=== PATIENT | female | born 1985 | race Caucasian/White ===

== ENCOUNTER 2016-05-13 16:31 | Emergency (ER) | payer MEDICAID, SELFPAY ==
[2016-05-13 19:49] VITALS: BP 135/109
--- NOTE | 2016-05-14 11:15 | CR ---
INDICATION: Slammed hand in car door. RIGHT HAND: Three views of the right hand revealed no evidence of an acute fracture, dislocation, or other significant bone or joint abnormality. A small sclerotic density in the proximal metaphysis of the middle phalanx of the third digit is noted, compatible with a benign bone island. IMPRESSION: Normal right hand. MTDD
--- NOTE | 2016-05-18 03:47 | ER ---
DATE SEEN: 05/13/2016 CHIEF COMPLAINT: The patient got her hand caught in car door at 0030 hours. HISTORY OF PRESENT ILLNESS: At 1500 hours, she struck the back of her hand and bruised the dorsum which increased the pain. She has moderate pain and discomfort, presents to the ED for further evaluation at 1700 hours. ALLERGIES: Metronidazole, Latex, polymyxin, natural rubber. CURRENT MEDICATIONS: 1. Vistaril. 2. Venlafaxine 150 mg daily. PHYSICAL EXAMINATION: GENERAL: The patient is in mild distress. HEENT: PERRLA intact. Pharynx without abnormality. NECK: Supple. LUNGS: Clear to auscultation. HEART: S1, S2. No murmur. EXTREMITIES: The patient on examination has mild swelling of MP joints 2, 3, 4, and dorsum of the hand. Sensation intact. Capillary refill intact. Range of motion of fingers intact, but she moves the fingers gingerly. IMAGING: X-rays without abnormality. ASSESSMENT: Contusion without fracture. Soft tissue injury dorsum right hand, MCP joints 2, 3, 4. PLAN: Follow up with doctor in a week. Use Tylenol or ibuprofen. /[id number] DAPHNIE/TREY FERRARI
== END 2016-05-13 18:45 | disposition home or self-care (01) ==
LOC: FB.ED 16:31
DX: S60.221A Contusion of right hand, initial encounter (principal); Z91.040 Latex allergy status; Z88.8 Allergy status to other drugs, medicaments and biological substances; W23.0XXA Caught, crushed, jammed, or pinched between moving objects, initial encounter
CPT/HCPCS: 73130-RT; 99283

== ENCOUNTER 2017-03-07 07:03 | Inpatient (IN) | payer MEDICAID ==
[2017-03-07] MEDS ORDERED: Oxytocin/Normal Saline 10 UNIT/1,000 ML BAG IV SCH (08:30)
--- NOTE | 2017-03-07 08:34 | PCM.LDHP ---
L&D History of Present Illness - General Date of Service: 03/07/17 Admit Problem/Dx: Patient Status Order with Admit Dx/Problem 03/07/17 07:00 Admission Status [Patient Status] [ADT] Routine 03/07/17 07:05 Admission Status [Patient Status] [ADT] Routine Admission Diagnosis/Problem Admission Diagnosis/Problem Source of Information: Patient History Limitations: Reports: No Limitations - History of Present Illness Introduction:: 31-year-old at 39 weeks and 2 days here for elective induction.she's had unremarkable so far. Dates have been confirmed by an early trimester ultrasound . She routinely. Barron but he is unwell today,and for the next 2 weeks, she is being induced electively to prevent precipitous delivery. Improves with: Reports: None Worsens with: Reports: None Associated Symptoms: Reports: N - Related Data Allergies/Adverse Reactions: Allergies Allergy/AdvReac Type Severity Reaction Status Date / Time metronidazole [From Flagyl] Allergy Unknown Other Verified 03/07/17 08:06 Latex, Natural Rubber Allergy Rash Verified 03/07/17 08:06 polymyxin B Allergy Other Verified 03/07/17 08:06 Home Medications: Home Meds Vits #93/Iron Fum/FA [ Formula Tablet] 1 cap PO DAILY 11/01/16 [History] Penicillin V Potassium 500 mg PO Q6HR 03/07/17 [History] Past Medical History Genitourinary History: Reports: UTI, Recurrent HELIOTHERAPIST History: Reports: Endometrial Ablation, Endometriosis, , Spontaneous Musculoskeletal History: Reports: Other (See Below) Other Musculoskeletal History: hand slammed in car door Neurological History: Reports: Migraines Psychiatric History: Reports: Depression Endocrine/Metabolic History: Reports: Obesity/BMI 30+, Vitamin D Deficiency - Infectious Disease History Infectious Disease History: Reports: Chicken Pox - Past Surgical History HEENT Surgical History: Reports: Oral Surgery Female Surgical History: Reports: D&C, Endometrial Ablation Social & Family History - Family History Family Medical History: Noncontributory Respiratory: Reports: Asthma OBGYN: Reports: Neurological: Reports: Seizure Oncologic: Reports: Breast - Tobacco Use Smoking Status *Q: Current Every Day Smoker Years of Tobacco use: 20 Packs/Tins Daily: 1 Used Tobacco, but Quit: No Second Hand Smoke Exposure: Yes - Caffeine Use Caffeine Use: Reports: Soda - Alcohol Use Days Per Week of Alcohol Use: 1 Number of Drinks Per Day: 2 Total Drinks Per Week: 2 - Recreational Drug Use Recreational Drug Use: No H&P Review of Systems - Review of Systems: Review Of Systems: ROS reveals no pertinent complaints other than HPI. General: Reports: No Symptoms HEENT: Reports: No Symptoms Pulmonary: Reports: No Symptoms Cardiovascular: Reports: No Symptoms Gastrointestinal: Reports: No Symptoms Genitourinary: Reports: No Symptoms Musculoskeletal: Reports: No Symptoms Skin: Reports: No Symptoms Psychiatric: Reports: No Symptoms Neurological: Reports: No Symptoms Hematologic/Lymphatic: Reports: No Symptoms Immunologic: Reports: No Symptoms L&D Exam - Exam Exam: See Below - Vital Signs Vital Signs: Last Vital Signs Temp 97.7 F 03/07/17 07:29 Pulse 110 H 03/07/17 07:29 Resp 20 03/07/17 07:29 BP 129/84 03/07/17 07:29 Pulse Ox 97 03/07/17 07:29 Weight: 87.09 kg - Nesbitt Score Nesbitt Score Cervix Position: Midposition Nesbitt Score Consistency: Soft Nesbitt Score Effacement: >80% Nesbitt Score Dilation: 3-4 cm Nesbitt Score Infant's Station: -1 ,0 Nesbitt Score Total: 10 - Exam General: Alert, Oriented HEENT: PERRLA, Conjunctiva Clear, EACs Clear, EOMI, Hearing Intact, Mucosa Moist & [place], Nares Patent, Normal Nasal Septum, Posterior Pharynx Clear, TMs Clear Neck: Supple, Trachea Midline Lungs: Clear to Auscultation, Normal Respiratory Effort Cardiovascular: Regular Rate, Regular Rhythm GI/Abdominal Exam: Normal Bowel Sounds, Soft, Non-Tender, No Organomegaly, No Distention, No Abnormal Bruit, No Mass, Pelvis Stable Rectal Exam: Normal Exam, Normal Rectal Tone Genitourinary: Normal external exam, Normal bimanual exam, Normal speculum exam Back Exam: Normal Inspection, Full Range of Motion Extremities: Normal Inspection, Normal Range of Motion, Non-Tender, No Pedal Edema, Normal Capillary Refill Skin: Warm, Dry, Intact Neurological: Cranial Nerves Intact, Reflexes Equal Bilateral Psychiatric: Alert, Normal Affect, Normal Mood - Problem List (1) Term SNOMED Code(s): 96292761 ICD Code: Z34.80 - ENCOUNTER FOR SUPRVSN OF NORMAL , UNSP TRIMESTER Status: Acute Current Visit: Yes (2) Elective induction of labor planned SNOMED Code(s): 736611762 ICD Code: [id number] - Status: Acute Current Visit: Yes Problem List Initiated/Reviewed/Updated: Yes Orders Last 24hrs: Active Orders 24 hr Category Date Time Status Admission Status [Patient Status] [ADT] Routine ADT 03/07/17 07:00 Active Admission Status [Patient Status] [ADT] Routine ADT 03/07/17 07:05 Active Communication Order [RC] ASDIRECTED Care 03/07/17 08:20 Active Communication Order [RC] ASDIRECTED Care 03/07/17 08:20 Active Communication Order [RC] ASDIRECTED Care 03/07/17 08:20 Active Communication Order [RC] ASDIRECTED Care 03/07/17 08:20 Active Notify Provider [RC] PRN Care 03/07/17 08:20 Active Notify Provider [RC] STAT Care 03/07/17 08:20 Active Vital Signs [RC] PER UNIT ROUTINE Care 03/07/17 08:20 Active Oxytocin/Normal Saline [Pitocin in NS 10 UNITS/1,000 ML Med 03/07/17 08:30 Active ] 10 unit in 1,000 ml IV TITRATE Medication Orders Oxytocin/Sodium Chloride (Pitocin In Ns 10 Units/1,000 Ml) 10 unit in 1,000 mls @ 12 mls/hr IV TITRATE ALFRED; 2 MUNITS/MIN PRN Reason: Protocol Assessment/Plan Comment:: I attempted AROM, probable sure very minimal clear fluid was felt the low back. We will start Pitocin obtain Axial analgesia and manage accordingly. She is GBS negative
[2017-03-07] MEDS ORDERED: Sodium Chloride 0.9% 10 ML Syringe FLUSH ONE (08:48)
[2017-03-07] MEDS: Lactated Ringers 1,000 ML IV SCH ×2 (08:52→10:49)
[2017-03-07] MEDS ORDERED: fentaNYL 100 MCG/2 ML SDV ITHECAL ONE (10:00)
[2017-03-07] MEDS ORDERED: Morphine PF 10 MG/10 ML SDV ONE (10:00)
[2017-03-07] MEDS ORDERED: Scopolamine 1.5 MG Transdermal Patch ONE (10:08)
[2017-03-07] MEDS ORDERED: ePHEDrine 50 MG/ML SDV ONE (10:08)
[2017-03-07] MEDS ORDERED: Naloxone 0.4 MG/ML SDV ONE (10:08)
[2017-03-07] MEDS ORDERED: Nalbuphine 10 MG/1 ML Vial IVPUSH PRN (10:41)
[2017-03-07] MEDS ORDERED: Scopolamine 1.5 MG Transdermal Patch TOP ONE (10:41)
[2017-03-07] MEDS ORDERED: Ondansetron 4 MG/2 ML SDV IVPUSH PRN (10:41)
[2017-03-07] MEDS ORDERED: Naloxone 0.4 MG/ML SDV IVPUSH PRN (10:41)
[2017-03-07] MEDS ORDERED: Promethazine 6.25 MG in Sodium Chloride 0.9% 50 ML IV PRN (10:41)
[2017-03-07] MEDS ORDERED: diphenhydrAMINE 50 MG/ML SDV IVPUSH PRN (10:41)
[2017-03-07] MEDS ORDERED: Promethazine 12.5 MG in Sodium Chloride 0.9% 50 ML IV PRN (10:41)
[2017-03-07] MEDS ORDERED: Naltrexone 50 MG Tab PO PRN ×2 (10:41→11:49)
[2017-03-07] MEDS ORDERED: diphenhydrAMINE 50 MG/ML SDV IV PRN (10:41)
[2017-03-07] MEDS ORDERED: ePHEDrine 50 MG/ML SDV IVPUSH PRN (10:41)
[2017-03-07] MEDS ORDERED: Famotidine/Normal Saline 20 MG in Premix Bag 1 BAG IV PRN (10:41)
[2017-03-07] MEDS ORDERED: Lactated Ringers 500 ML IV SCH ×2 (10:45)
--- NOTE | 2017-03-07 11:48 | PCM.DEL ---
L & D Note - General Info Date of Service: 03/07/17 - Delivery Note Labor: Spontaneous, Augmented by Oxytocin Delivery Outcome: Livebirth Presentation: Right Occiput Transverse (ROT) Nuchal Cord: None Episiotomy Type: None Laceration: None Placenta: Spontaneous Resuscitation Needed: Yes Second Stage Interventions: Reports: Second Nurse Assessed Progress of Descent, Second Nurse Reviewed Contraction Pattern, Laboring Down, Nurse Consultation Requested, Pushing Effectively, Pushing, Birthing Stool, Pushing, Feet in Foot Rests Induction Criteria - Nesbitt Score Nesbitt Score Dilation: 3-4 cm Nesbitt Score Effacement: >80% Nesbitt Score Consistency: Soft Nesbitt Score Presenting Part: Reports: Cephalic - Induction Gestational Age >/= 39 wks: Yes Estimated Pelvis: Reports: Adequate Reassuring Monitoring Strip: Yes Absence of Tachy Systole: No - Augmentation Estimated Pelvis: Reports: Adequate Reassuring Monitoring Strip: Yes Absence of Tachy Systole: Yes - General Info Date of Service: 03/07/17 Functional Status: Reports: Pain Controlled - Review of Systems General: Reports: No Symptoms HEENT: Reports: No Symptoms Pulmonary: Reports: No Symptoms Cardiovascular: Reports: No Symptoms Gastrointestinal: Reports: No Symptoms Genitourinary: Reports: No Symptoms Musculoskeletal: Reports: No Symptoms Skin: Reports: No Symptoms Neurological: Reports: No Symptoms Psychiatric: Reports: No Symptoms - Patient Data Vitals - Most Recent: Last Vital Signs Temp 97.5 F 03/07/17 10:42 Pulse 83 03/07/17 10:52 Resp 20 03/07/17 10:52 BP 135/72 03/07/17 10:52 Pulse Ox 100 03/07/17 10:52 Weight - Most Recent: 87.09 kg I&O - Last 24 Hours: Intake & Output 03/06/17 03/07/17 03/07/17 22:59 06:59 14:59 Output Total 400 Balance -400 Med Orders - Current: Current Medications Diphenhydramine HCl (Benadryl) 25 mg IVPUSH ASDIRECTED PRN PRN Reason: EXTRAPYRAMIDAL SIDE EFFECTS Diphenhydramine HCl (Benadryl) 25 mg IV ASDIRECTED PRN PRN Reason: PRURITUS Ephedrine Sulfate (Ephedrine Sulfate) 0 mg IVPUSH ASDIRECTED PRN PRN Reason: Hypotension Oxytocin/Sodium Chloride (Pitocin In Ns 10 Units/1,000 Ml) 10 unit in 1,000 mls @ 12 mls/hr IV TITRATE ALFRED; 2 MUNITS/MIN PRN Reason: Protocol Last Titration: 03/07/17 10:45 Dose: 3 munits/min, 18 mls/hr Lactated Ringer's (Ringers, Lactated) 1,000 mls @ 125 mls/hr IV ASDIRECTED ALFRED Last Admin: 03/07/17 10:49 Dose: 125 mls/hr Famotidine 20 mg/ Premix 50 mls @ 100 mls/hr IV ONETIME PRN PRN Reason: PRURITIS Lactated Ringer's (Ringers, Lactated) 500 mls @ 999 mls/hr IV .SEECOMMENT ALRFED Lactated Ringer's (Ringers, Lactated) 500 mls @ 999 mls/hr IV .BOLUS ALFRED Promethazine HCl 6.25 mg/ (Sodium Chloride) 50.25 mls @ 200 mls/hr IV Q4H PRN PRN Reason: Nausea/Vomiting Promethazine HCl 12.5 mg/ (Sodium Chloride) 50.5 mls @ 200 mls/hr IV Q4H PRN PRN Reason: Nausea/Vomiting Nalbuphine HCl (Nubain) 10 mg IVPUSH Q1H PRN PRN Reason: PRURITUS Naloxone HCl (Narcan) 0.1 mg IVPUSH ASDIRECTED PRN PRN Reason: Respiratory Depression Naltrexone HCl (Naltrexone) 50 mg PO ASDIRECTED PRN PRN Reason: REVERSAL Ondansetron HCl (Zofran) 4 mg IVPUSH Q4H PRN PRN Reason: Nausea/Vomiting Discontinued Medications Ephedrine Sulfate (Ephedrine Sulfate) Confirm Administered Dose 50 mg .ROUTE .STK-MED ONE Stop: 03/07/17 10:09 Naloxone HCl (Narcan) Confirm Administered Dose 0.4 mg .ROUTE .STK-MED ONE Stop: 03/07/17 10:09 Scopolamine (Transderm-Scop) Confirm Administered Dose 1.5 mg .ROUTE .STK-MED ONE Stop: 03/07/17 10:09 Last Admin: 03/07/17 10:14 Dose: 1.5 mg Scopolamine (Transderm-Scop) 1.5 mg TOP ONETIME ONE Stop: 03/07/17 10:42 Sodium Chloride (Saline Flush) 10 ml FLUSH ONETIME ONE Stop: 03/07/17 08:49 Last Admin: 03/07/17 08:54 Dose: 10 ml - Exam General: Alert, Oriented HEENT: Pupils Equal, Pupils Reactive, EOMI, Mucous Membr. Moist/[place] Neck: Supple Lungs: Clear to Auscultation, Normal Respiratory Effort Cardiovascular: Regular Rate, Regular Rhythm GI/Abdominal Exam: Normal Bowel Sounds, Soft, Non-Tender, No Organomegaly, No Distention, No Abnormal Bruit, No Mass, Pelvis Stable (Female) Exam: Normal External Exam, Normal Speculum Exam, Normal Bimanual Exam Back Exam: Normal Inspection, Full Range of Motion Extremities: Normal Inspection, Normal Range of Motion, Non-Tender, No Pedal Edema, Normal Capillary Refill Skin: Warm, Dry, Intact Wound/Incisions: Healing Well Neurological: No New Focal Deficit Psy/Mental Status: Alert, Normal Affect, Normal Mood - Problem List & Annotations (1) Term SNOMED Code(s): 40618315 Code(s): Z34.80 - ENCOUNTER FOR SUPRVSN OF NORMAL , UNSP TRIMESTER Status: Acute Current Visit: Yes (2) Elective induction of labor planned SNOMED Code(s): 071409197 Code(s): GPN1181 - Status: Acute Current Visit: Yes (3) Normal delivery at term SNOMED Code(s): 97297019 Code(s): O80 - ENCOUNTER FOR FULL-TERM UNCOMPLICATED DELIVERY Status: Acute Current Visit: Yes - Problem List Review Problem List Initiated/Reviewed/Updated: Yes - My Orders Last 24 Hours: My Active Orders 03/07/17 07:00 Admission Status [Patient Status] [ADT] Routine 03/07/17 07:05 Admission Status [Patient Status] [ADT] Routine 03/07/17 08:14 Admission Status [Patient Status] [ADT] Routine 03/07/17 08:20 Communication Order [RC] ASDIRECTED Communication Order [RC] ASDIRECTED Communication Order [RC] ASDIRECTED Communication Order [RC] ASDIRECTED Notify Provider [RC] PRN Notify Provider [RC] STAT Vital Signs [RC] PER UNIT ROUTINE 03/07/17 08:30 Oxytocin/Normal Saline [Pitocin in NS 10 UNITS/1,000 ML] 10 unit in 1,000 ml IV TITRATE 03/07/17 09:00 Lactated Ringers [Ringers, Lactated] 1,000 ml IV ASDIRECTED 03/07/17 10:03 Code Status [Resuscitation Status] Routine - Plan Plan:: Routine cre.CBC in Am
[2017-03-07] MEDS: Ibuprofen 600 MG Tab PO PRN (14:43)
[2017-03-08] MEDS: Ibuprofen 600 MG Tab PO PRN ×3 (00:36→17:49)
--- NOTE | 2017-03-08 08:45 | PCM.PNPP ---
- General Info Date of Service: 03/08/17 Admission Dx/Problem (Free Text): Patient Status Order with Admit Dx/Problem 03/07/17 07:00 Admission Status [Patient Status] [ADT] Routine 03/07/17 07:05 Admission Status [Patient Status] [ADT] Routine Admission Diagnosis/Problem Admission Diagnosis/Problem Functional Status: Reports: Pain Controlled - Review of Systems General: Reports: No Symptoms HEENT: Reports: No Symptoms Pulmonary: Reports: No Symptoms Cardiovascular: Reports: No Symptoms Gastrointestinal: Reports: No Symptoms Genitourinary: Reports: No Symptoms Musculoskeletal: Reports: No Symptoms Skin: Reports: No Symptoms Neurological: Reports: No Symptoms Psychiatric: Reports: No Symptoms - General Info Date of Service: 03/08/17 - Patient Data Vital Signs - Most Recent: Last Vital Signs Temp 98.7 F 03/08/17 00:00 Pulse 89 03/08/17 00:00 Resp 18 03/08/17 00:00 BP 106/71 03/08/17 00:00 Pulse Ox 98 03/08/17 00:00 Weight - Most Recent: 87.09 kg Lab Results - Last 24 Hours: Laboratory Results - last 24 hr 03/08/17 Range/Units 06:10 WBC 9.5 (4.5-12.0) X10-3/uL RBC 3.80 (3.23-5.20) x10(6)uL Hgb 10.4 L (11.5-15.5) g/dL Hct 32.4 (30.0-51.3) % MCV 85.3 (80-96) fL MCH 27.5 L (27.7-33.6) pg MCHC 32.2 (32.2-35.4) g/dL RDW 13.2 (11.5-15.5) % Plt Count 203 (125-369) X10(3)uL Med Orders - Current: Current Medications Diphenhydramine HCl (Benadryl) 25 mg IVPUSH ASDIRECTED PRN PRN Reason: EXTRAPYRAMIDAL SIDE EFFECTS Diphenhydramine HCl (Benadryl) 25 mg IV ASDIRECTED PRN PRN Reason: PRURITUS Ephedrine Sulfate (Ephedrine Sulfate) 0 mg IVPUSH ASDIRECTED PRN PRN Reason: Hypotension Oxytocin/Sodium Chloride (Pitocin In Ns 10 Units/1,000 Ml) 10 unit in 1,000 mls @ 12 mls/hr IV TITRATE ALFRED; 2 MUNITS/MIN PRN Reason: Protocol Last Titration: 03/07/17 10:45 Dose: 3 munits/min, 18 mls/hr Lactated Ringer's (Ringers, Lactated) 1,000 mls @ 125 mls/hr IV ASDIRECTED ALFRED Last Admin: 03/07/17 10:49 Dose: 125 mls/hr Famotidine 20 mg/ Premix 50 mls @ 100 mls/hr IV ONETIME PRN PRN Reason: PRURITIS Lactated Ringer's (Ringers, Lactated) 500 mls @ 999 mls/hr IV .SEECOMMENT ALFRED Lactated Ringer's (Ringers, Lactated) 500 mls @ 999 mls/hr IV .BOLUS ALFRED Promethazine HCl 6.25 mg/ (Sodium Chloride) 50.25 mls @ 200 mls/hr IV Q4H PRN PRN Reason: Nausea/Vomiting Promethazine HCl 12.5 mg/ (Sodium Chloride) 50.5 mls @ 200 mls/hr IV Q4H PRN PRN Reason: Nausea/Vomiting Ibuprofen (Motrin) 600 mg PO Q4H PRN PRN Reason: Pain Last Admin: 03/08/17 00:36 Dose: 600 mg Nalbuphine HCl (Nubain) 10 mg IVPUSH Q1H PRN PRN Reason: PRURITUS Naloxone HCl (Narcan) 0.1 mg IVPUSH ASDIRECTED PRN PRN Reason: Respiratory Depression Naltrexone HCl (Naltrexone) 25 mg PO ASDIRECTED PRN PRN Reason: REVERSAL Last Admin: 03/07/17 12:27 Dose: 25 mg Non-Formulary Medication (Penicillin V Potassium [Penicillin V Potassium]) 500 mg PO Q6HR [facility] Non-Formulary Medication ( Vits #93/Iron Fum/Fa [ Formula Tablet ]) 1 cap PO DAILY ALFRED Ondansetron HCl (Zofran) 4 mg IVPUSH Q4H PRN PRN Reason: Nausea/Vomiting Last Admin: 03/07/17 12:31 Dose: 4 mg Discontinued Medications Ephedrine Sulfate (Ephedrine Sulfate) Confirm Administered Dose 50 mg .ROUTE .K-MED ONE Stop: 03/07/17 10:09 Last Admin: 03/07/17 13:08 Dose: Not Given Naloxone HCl (Narcan) Confirm Administered Dose 0.4 mg .ROUTE .STK-MED ONE Stop: 03/07/17 10:09 Last Admin: 03/07/17 13:08 Dose: Not Given Naltrexone HCl (Naltrexone) 50 mg PO ASDIRECTED PRN PRN Reason: REVERSAL Scopolamine (Transderm-Scop) Confirm Administered Dose 1.5 mg .ROUTE .STK-MED ONE Stop: 03/07/17 10:09 Last Admin: 03/07/17 10:14 Dose: 1.5 mg Scopolamine (Transderm-Scop) 1.5 mg TOP ONETIME ONE Stop: 03/07/17 10:42 Last Admin: 03/07/17 13:09 Dose: Not Given Sodium Chloride (Saline Flush) 10 ml FLUSH ONETIME ONE Stop: 03/07/17 08:49 Last Admin: 03/07/17 08:54 Dose: 10 ml - Interaction Infant Disposition, : [place] in Room with Family Support Person: Friend - Recovery Exam Fundal Tone: Firm Fundal Level: At Umbilicus Fundal Placement: Midline Lochia Amount: Small, Moderate Lochia Color: Rubra/Red Perineum Description: Intact, Minimal Bruising/Swelling Episiotomy/Laceration: None Bladder Status: Voiding Urinary Elimination: Voided - Exam General: Alert, Oriented HEENT: Pupils Equal Neck: Supple Lungs: Clear to Auscultation, Normal Respiratory Effort Cardiovascular: Regular Rate, Regular Rhythm GI/Abdominal Exam: Normal Bowel Sounds, Soft, Non-Tender, No Organomegaly, No Distention, No Abnormal Bruit, No Mass, Pelvis Stable Extremities: Normal Inspection, Normal Range of Motion, Non-Tender, No Pedal Edema, Normal Capillary Refill Skin: Warm, Dry, Intact Wound/Incisions: Healing Well Neurological: No New Focal Deficit Psy/Mental Status: Alert, Normal Affect, Normal Mood - Problem List & Annotations (1) Term SNOMED Code(s): 64048980 Code(s): Z34.80 - ENCOUNTER FOR SUPRVSN OF NORMAL , UNSP TRIMESTER Status: Acute Current Visit: Yes (2) Elective induction of labor planned SNOMED Code(s): 054292497 Code(s): CPQ0719 - Status: Acute Current Visit: Yes (3) Normal delivery at term SNOMED Code(s): 67753061 Code(s): O80 - ENCOUNTER FOR FULL-TERM UNCOMPLICATED DELIVERY Status: Acute Current Visit: Yes - Problem List Review Problem List Initiated/Reviewed/Updated: Yes - My Orders Last 24 Hours: My Active Orders 03/07/17 08:14 Admission Status [Patient Status] [ADT] Routine 03/07/17 08:20 Communication Order [RC] ASDIRECTED Communication Order [RC] ASDIRECTED Communication Order [RC] ASDIRECTED Communication Order [RC] ASDIRECTED 03/07/17 08:30 Oxytocin/Normal Saline [Pitocin in NS 10 UNITS/1,000 ML] 10 unit in 1,000 ml IV TITRATE 03/07/17 09:00 Lactated Ringers [Ringers, Lactated] 1,000 ml IV ASDIRECTED 03/07/17 10:03 Code Status [Resuscitation Status] Routine 03/07/17 11:48 Vital Signs [RC] PFP Ibuprofen [Motrin] 600 mg PO Q4H PRN 03/08/17 08:45 Penicillin V Potassium [Penicillin V Potassium] 500 mg PO Q6HR 03/08/17 09:00 Vits #93/Iron Fum/FA [ Formula Tablet] 1 cap PO DAILY - Plan Plan:: Routine care. Dr Cruz to see her in AM
[2017-03-08] MEDS: Prenatal Multivitamin with Calcium/Folic Acid/Fe Fumarate Cap PO SCH (10:05)
[2017-03-08] MEDS: Penicillin V Potassium 500 MG Tab PO SCH ×3 (10:05→21:27)
[2017-03-09] MEDS: Penicillin V Potassium 500 MG Tab PO SCH ×2 (05:30→09:16)
[2017-03-09] MEDS: Ibuprofen 600 MG Tab PO PRN (08:17)
[2017-03-09 08:36] VITALS: BP 121/57
--- NOTE | 2017-03-09 08:41 | PCM.DCSUM1 ---
Discharge Summary - Hospital Course Free Text/Narrative:: 31yo pt. with NVD after induction at term. Epidural anesthetic. Labor, delivery, courses normal. Pt. came in on PCN for dental abscess. exam normal. hgb: 10.4g. - Discharge Data Discharge Date: 03/09/17 Discharge Disposition: Home, Self-Care 01 Condition: Good - Discharge Diagnosis/Problem(s) (1) Normal delivery at term SNOMED Code(s): 82864603 ICD Code: O80 - ENCOUNTER FOR FULL-TERM UNCOMPLICATED DELIVERY Status: Acute Priority: High Current Visit: Yes (2) Dental abscess SNOMED Code(s): 305101020 ICD Code: K04.7 - PERIAPICAL ABSCESS WITHOUT SINUS Status: Acute Priority : Medium Current Visit: Yes - Patient Summary/Data Operative Procedure(s) Performed: NVD Complications: none - Patient Instructions Diet: Regular Diet as Tolerated Activity: Full Weight Bearing Driving: May Drive Today Showering/Bathing: May Shower Notify Provider of: Fever, Increased Pain - Discharge Plan Prescriptions/Med Rec: Ibuprofen 600 mg PO Q6H PRN #30 tablet PRN Reason: Pain Home Medications: Home Meds Penicillin V Potassium 500 mg PO Q6HR 03/07/17 [History] Ibuprofen 600 mg PO Q6H PRN #30 tablet 03/09/17 [Rx] Vit/FA/Fe Fumarate [-U] 1 each PO DAILY cap 03/09/17 [Rx] Patient Handouts: Shaken Baby Syndrome, Jaundice, , Infant Formula Feeding, Rooming-In With Your [place], Keeping Your [place] Safe and Healthy, [id number], Before Baby Comes Home, 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 - , Vaginal Delivery, Depression and Baby Blues, How to Take a Sitz Bath, Baby Safe Sleeping Information, How To Prepare Formula, Labor Induction, Hand Washing, [id number], Baby Care, Home Care Instructions for Mom, Vaginal Delivery, Care After, SIDS Prevention Information, Care After Vaginal Delivery, Fall Prevention in Hospitals, Adult - Discharge Summary/Plan Comment DC Time >30 min.: No - Patient Data Vitals - Most Recent: Last Vital Signs Temp 98.4 F 03/09/17 07:30 Pulse 72 03/09/17 07:30 Resp 18 03/09/17 07:30 BP 121/57 L 03/09/17 07:30 Pulse Ox 100 03/09/17 07:30 Weight - Most Recent: 192 lb Med Orders - Current: Current Medications Ibuprofen (Motrin) 600 mg PO Q4H PRN PRN Reason: Pain Last Admin: 03/09/17 08:17 Dose: 600 mg Penicillin V Potassium (Veetids) 500 mg PO Q6H ALFRED Last Admin: 03/09/17 05:30 Dose: 500 mg Multivit/Folic Acid/Iron (-U) 1 each PO DAILY ALFRED Last Admin: 03/08/17 10:05 Dose: 1 each Discontinued Medications Diphenhydramine HCl (Benadryl) 25 mg IVPUSH ASDIRECTED PRN PRN Reason: EXTRAPYRAMIDAL SIDE EFFECTS Diphenhydramine HCl (Benadryl) 25 mg IV ASDIRECTED PRN PRN Reason: PRURITUS Ephedrine Sulfate (Ephedrine Sulfate) Confirm Administered Dose 50 mg .ROUTE .STK-MED ONE Stop: 03/07/17 10:09 Last Admin: 03/07/17 13:08 Dose: Not Given Ephedrine Sulfate (Ephedrine Sulfate) 0 mg IVPUSH ASDIRECTED PRN PRN Reason: Hypotension Oxytocin/Sodium Chloride (Pitocin In Ns 10 Units/1,000 Ml) 10 unit in 1,000 mls @ 12 mls/hr IV TITRATE ALFRED; 2 MUNITS/MIN PRN Reason: Protocol Last Titration: 03/07/17 10:45 Dose: 3 munits/min, 18 mls/hr Lactated Ringer's (Ringers, Lactated) 1,000 mls @ 125 mls/hr IV ASDIRECTED ALFRED Last Admin: 03/07/17 10:49 Dose: 125 mls/hr Famotidine 20 mg/ Premix 50 mls @ 100 mls/hr IV ONETIME PRN PRN Reason: PRURITIS Lactated Ringer's (Ringers, Lactated) 500 mls @ 999 mls/hr IV .SEECOMMENT ALFRED Lactated Ringer's (Ringers, Lactated) 500 mls @ 999 mls/hr IV .BOLUS ALFRED Promethazine HCl 6.25 mg/ (Sodium Chloride) 50.25 mls @ 200 mls/hr IV Q4H PRN PRN Reason: Nausea/Vomiting Promethazine HCl 12.5 mg/ (Sodium Chloride) 50.5 mls @ 200 mls/hr IV Q4H PRN PRN Reason: Nausea/Vomiting Nalbuphine HCl (Nubain) 10 mg IVPUSH Q1H PRN PRN Reason: PRURITUS Naloxone HCl (Narcan) Confirm Administered Dose 0.4 mg .ROUTE .STK-MED ONE Stop: 03/07/17 10:09 Last Admin: 03/07/17 13:08 Dose: Not Given Naloxone HCl (Narcan) 0.1 mg IVPUSH ASDIRECTED PRN PRN Reason: Respiratory Depression Naltrexone HCl (Naltrexone) 50 mg PO ASDIRECTED PRN PRN Reason: REVERSAL Naltrexone HCl (Naltrexone) 25 mg PO ASDIRECTED PRN PRN Reason: REVERSAL Last Admin: 03/07/17 12:27 Dose: 25 mg Ondansetron HCl (Zofran) 4 mg IVPUSH Q4H PRN PRN Reason: Nausea/Vomiting Last Admin: 03/07/17 12:31 Dose: 4 mg Scopolamine (Transderm-Scop) Confirm Administered Dose 1.5 mg .ROUTE .STK-MED ONE Stop: 03/07/17 10:09 Last Admin: 03/07/17 10:14 Dose: 1.5 mg Scopolamine (Transderm-Scop) 1.5 mg TOP ONETIME ONE Stop: 03/07/17 10:42 Last Admin: 03/07/17 13:09 Dose: Not Given Sodium Chloride (Saline Flush) 10 ml FLUSH ONETIME ONE Stop: 03/07/17 08:49 Last Admin: 03/07/17 08:54 Dose: 10 ml *Q Meaningful Use (DIS) - VTE *Q VTE Criteria *Q: - Stroke *Q Stroke Criteria *Q: - AMI *Q AMI Criteria *Q:
[2017-03-09] MEDS: Prenatal Multivitamin with Calcium/Folic Acid/Fe Fumarate Cap PO SCH (09:16)
== END 2017-03-09 09:35 | disposition home or self-care (01) | DRG 775 ==
LOC: FB.OB 07:03 → OBSVTOIN 08:14
PROVIDERS: ADMIT Family Medicine; ATTEND Family Medicine
PROC: 10E0XZZ Delivery of Products of Conception, External Approach (ICD-10-PCS; principal; 2017-03-07)
PROC: 00HU33Z Insertion of Infusion Device into Spinal Canal, Percutaneous Approach (ICD-10-PCS; 2017-03-07)
PROC: 3E0R3BZ Introduction of Anesthetic Agent into Spinal Canal, Percutaneous Approach (ICD-10-PCS; 2017-03-07)
DX: O99.334 Smoking (tobacco) complicating childbirth (principal); Z3A.39 39 weeks gestation of pregnancy; Z37.0 Single live birth; O75.89 Other specified complications of labor and delivery; K04.7 Periapical abscess without sinus
CPT/HCPCS: 36415; 59409; 85027; A9270-GY; J2270; J2405; J2590; J3010; J7050; J7120